=== PATIENT | female | born 1950 | race Caucasian/White ===

== ENCOUNTER 2018-12-18 05:48 | Day surgery (SDC) | payer MEDICARE ==
[~2018-12-18 05:48] MED LIST: Buffered Lidocaine 1% SYRIN* 1 ML/SYRINGE INTRADERM ONE
[2018-12-18] MEDS ORDERED: Lactated Ringers 1000 ML Bag* 1,000 ML IV SCH (06:00)
[2018-12-18] MEDS ORDERED: Buffered Lidocaine 1% SYRIN* 1 ML/SYRINGE INTRADERM ONE (06:23)
[2018-12-18] MEDS ORDERED: Lidocaine 2% PF * 5 ML VIAL ONE (07:03)
[2018-12-18] MEDS ORDERED: Propofol* 10 MG/ML 20 ML BTL ONE (07:03)
[2018-12-18] MEDS ORDERED: Midazolam* 1 MG/ML 2 ML VIAL (2 MG) ONE (07:04)
[2018-12-18] MEDS ORDERED: fentaNYL* 50 MCG/ML 2 ML VIAL (100 MCG VIAL) ONE (07:04)
[2018-12-18] MEDS ORDERED: Lidocaine 1% INJ* 10 MG/ML 30 ML SDV ONE (07:12)
[2018-12-18] MEDS ORDERED: Bupivacaine 0.5% W/EPI SDV* 30 ML VIAL ONE (07:12)
[2018-12-18] MEDS ORDERED: Propofol* 500 MG/50 ML BTL ONE (07:36)
[2018-12-18] MEDS ORDERED: HYDROmorphone INJ1* 1 MG/ML SYRINGE IV PRN (08:04)
[2018-12-18] MEDS ORDERED: oxyCODONE TAB* 5 MG TAB PO PRN (08:04)
[2018-12-18] MEDS ORDERED: Naloxone* 0.4 MG/ML 1 ML VIAL IV PRN (08:04)
[2018-12-18] MEDS ORDERED: Acetaminophen TAB* 325 MG PO PRN (08:04)
[2018-12-18] MEDS ORDERED: Ondansetron INJ* 2 MG/ML VIAL IV PRN (08:04)
[2018-12-18 08:49] VITALS: BP 106/60
--- NOTE | 2018-12-18 08:50 | BRIEFOPN ---
Brief Operative Note - Surgery Procedures: 12/18/18 Op Note (dictated) Pre-op dx: left breast cancer Post-o dx: same Procedure: power port placement Surgeon: Gabo Asst: none Anesth: local-MAC EBL: 10 cc Complications: none SCDs on during surgery Abx: not indicated Pt. tolerated procedure well and was transferred to in a stable condition. CLFoster
--- NOTE | 2018-12-18 09:33 | OP ---
CC: Dr. Naeem Jordan; Dr. Francisca Russ * DATE OF OPERATION: 12/18/18 - [facility] DATE OF : 50 SURGEON: Bekah Ayon MD. DRIVE IN WAITER/WAITRESS: There was no medical assistant secretary for this case. PRE-OP DIAGNOSIS: Left breast cancer. POST-OP DIAGNOSIS: Left breast cancer. OPERATIVE PROCEDURE: PowerPort placement. INDICATIONS: Ms. Camarena is a 68-year-old woman with recently diagnosed left breast cancer, planned for neoadjuvant chemotherapy, so she needs a PowerPort. DESCRIPTION OF PROCEDURE: On the morning of surgery, she was brought to the operating room, placed on the OR table in the supine position and given IV sedation. The right chest was prepped and draped in the usual sterile fashion. After infiltrating with local anesthetic, using Seldinger technique, attempts were made to place a wire in the right subclavian vein. After a few attempts, this was unsuccessful, so attention was turned to the right IJ location, and again it took a couple of attempts and a couple of more attempts in the subclavian position, but ultimately the wire was advanced into the right IJ position. The initial attempts were unsuccessful due to the wire not being able to advance. Position of the wire in the superior vena cava was confirmed with fluoroscopy. Once the wire position was adequate, a port pocket was created. This was done by infiltrating the skin of the chest wall with local anesthetic and making an incision. Subcutaneous tissue was then divided with electrocautery to create a pocket inferiorly. Once the port pocket was then sized to accommodate the port, the catheter was tunneled from the port pocket site to the wire exit site. A dilator and introducer were advanced over the wire under fluoroscopic visualization and the dilator and wire were removed. The catheter was then advanced through the introducer into the superior vena cava location under fluoroscopic visualization. The introducer was peeled away. The catheter was withdrawn back to an appropriate depth, trimmed to an appropriate length and attached to the port. The port was inserted in the port pocket and secured to the chest wall with 2-0 Prolene stitches. The function of the port was checked and found to be adequate, so closure was accomplished. This was done with 3-0 Vicryl in the subcutaneous layer, and the skin was closed with 4-0 Prolene in the subcuticular fashion. Steri-Strips and a dry sterile dressing were applied. An additional stitch was placed in the skin and exit had been made at the wire exit site at the IJ location and then this was covered with a Steri-Strip as well. All sponge and instrument counts were correct. The patient tolerated the procedure well and was transferred to Recovery in a stable condition. [id number] #: [id number] MTDD
== END 2018-12-18 09:55 | disposition home or self-care (01) ==
LOC: OR 05:48
PROVIDERS: ATTEND Surgery
DX: C50.412 Malignant neoplasm of upper-outer quadrant of left female breast (principal); E78.5 Hyperlipidemia, unspecified
CPT/HCPCS: 71045; 76000; C1788; J1642; J2250; J2704; J3010